=== PATIENT | female | born 2000 | race Two or more races ===

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

== ENCOUNTER 2018-01-11 16:07 | Outpatient (CLI) | payer OTHER ==
[2018-01-11] MEDS ORDERED: morphine LIQ (10 MG/5 ML) CUP PO (19:30)
[2018-01-11] MEDS: LACTATED RINGER'S 1,000 ML IV (20:00)
[2018-01-11] MEDS: morphine 10 MG INJ IM (20:06)
[2018-01-11 20:32] LABS: ADD MAN DIFF? NO
[2018-01-11 20:39] LABS: BASOPHILS % 0.2 % (0.0-2.0); EOSINOPHILS % 0.3 % (0.0-7.0); HEMATOCRIT 32.1 % (37.0-47.0); HEMOGLOBIN 10.3 g/dl (12.0-16.0); LYMPHOCYTES # 1.4 10^3/ul (0.8-2.9); LYMPHOCYTES % 11.6 % (18.0-55.0); MEAN CORPUSCULAR HEMOGLOBIN 27.2 pg (29.0-33.0); MEAN CORPUSCULAR HGB CONC 32.1 g/dl (32.0-37.0); MEAN CORPUSCULAR VOLUME 84.9 fl (72.0-104.0); MEAN PLATELET VOLUME 11.2 fl (7.4-10.4); MONOCYTE # 0.8 10^3/ul (0.3-0.9); MONOCYTES % 6.5 % (0.0-13.0); NEUTROPHILS % 80.8 % (30.0-74.0); PLATELET COUNT 277 10^3/UL (140-415); RED BLOOD COUNT 3.78 10^6/ul (4.20-5.40)
[2018-01-11 20:39] LABS: WHITE BLOOD COUNT 12.3 10^3/ul (4.8-10.8)
[2018-01-11 20:50] LABS: ALANINE AMINOTRANSFERASE 17 IU/L (13-69); ALBUMIN 3.4 g/dl (3.3-4.9); ALBUMIN/GLOBULIN RATIO 1.03; ALKALINE PHOSPHATASE 305 IU/L (42-121); ANION GAP 13 (8-16); ASPARTATE AMINO TRANSFERASE 21 IU/L (15-46); BILIRUBIN,INDIRECT 0.3 mg/dl (0-1.1); BILIRUBIN,TOTAL 0.3 mg/dl (0.2-1.3); BLOOD UREA NITROGEN 10 mg/dl (7-20); CALCIUM 8.8 mg/dl (8.4-10.2); CARBON DIOXIDE 19 mmol/L (21-31); CHLORIDE 106 mmol/L (97-110); CREATININE 0.42 mg/dl (0.44-1.00); GLUCOSE 95 mg/dl (70-220); POTASSIUM 3.8 mmol/L (3.5-5.1); SODIUM 134 mmol/L (135-144); TOTAL PROTEIN 6.7 g/dl (6.1-8.1); URIC ACID 4.1 mg/dl (3.1-7.9)
== END 2018-01-11 23:05 | disposition home or self-care (01) ==
LOC: OBT 16:07 → L-D 16:12 → OBT 23:05
DX: O47.1 False labor at or after 37 completed weeks of gestation (principal); Z3A.38 38 weeks gestation of pregnancy
CPT/HCPCS: 36415; 76818; 80053; 84560; 85025; 96360; 96361; 96372

== ENCOUNTER 2018-01-12 10:53 | Inpatient (IN) | payer OTHER ==
[2018-01-12] MEDS ORDERED: MISOPROSTOL 200 MCG TAB PR (11:30)
[2018-01-12] MEDS ORDERED: LIDOCAINE 1% (MPF) 30 ML INJ INJ (11:30)
[2018-01-12] MEDS ORDERED: BUTORPHANOL 2 MG INJ IV (11:30)
[2018-01-12] MEDS ORDERED: METHYLERGONOVINE 0.2 MG INJ IM (11:30)
[2018-01-12] MEDS ORDERED: OXYTOCIN 30 UNITS/LR 500 ML IV (11:30)
[2018-01-12] MEDS ORDERED: CARBOPROST 250 MCG INJ IM (11:30)
[2018-01-12] MEDS: LACTATED RINGER'S 1,000 ML IV* ×3 (11:49→20:42)
[2018-01-12 11:55] LABS: ADD MAN DIFF? NO
[2018-01-12 12:11] LABS: WHITE BLOOD COUNT 13.6 10^3/ul (4.8-10.8)
[2018-01-12 12:11] LABS: BASOPHILS % 0.1 % (0.0-2.0); EOSINOPHILS % 0.1 % (0.0-7.0); HEMATOCRIT 33.2 % (37.0-47.0); HEMOGLOBIN 11.1 g/dl (12.0-16.0); LYMPHOCYTES # 1.1 10^3/ul (0.8-2.9); LYMPHOCYTES % 7.8 % (18.0-55.0); MEAN CORPUSCULAR HEMOGLOBIN 28.1 pg (29.0-33.0); MEAN CORPUSCULAR HGB CONC 33.4 g/dl (32.0-37.0); MEAN CORPUSCULAR VOLUME 84.1 fl (72.0-104.0); MONOCYTE # 0.7 10^3/ul (0.3-0.9); MONOCYTES % 4.9 % (0.0-13.0); NEUTROPHIL # 11.8 10^3/ul (1.6-7.5); NEUTROPHILS % 86.6 % (30.0-74.0); PLATELET COUNT 314 10^3/UL (140-415); RED BLOOD COUNT 3.95 10^6/ul (4.20-5.40); RED CELL DISTRIBUTION WIDTH 13.9 % (11.5-14.5)
[2018-01-12 12:29] LABS: INR 0.89; PARTIAL THROMBOPLASTIN TIME 27.8 Sec (25.0-35.0); PROTIME 12.1 Sec (11.9-14.9); PT RATIO 0.9
[2018-01-12] MEDS ORDERED: FENTAnyl 2MCG/ML-ROPIV 0.2% 100 ML (12:43)
[2018-01-12] MEDS ORDERED: ONDANSETRON 4 MG INJ IV (13:00)
[2018-01-12] MEDS ORDERED: NALOXONE (0.4 MG/ML) INJ IV (13:00)
[2018-01-12] MEDS ORDERED: DIPHENHYDRAMINE 50 MG INJ IV (13:00)
[2018-01-12 14:04] LABS: AMPHETAMINE/METHAMPHETAMINE Negative (NEGATIVE); BARBITURATES Negative (NEGATIVE)
[2018-01-12 14:13] LABS: BENZODIAZEPINES Negative (NEGATIVE); CANNABINOIDS Negative (NEGATIVE); COCAINE Negative (NEGATIVE)
[2018-01-12 14:56] LABS: OPIATES POSITIVE (NEGATIVE)
[2018-01-12] MEDS: FENTAnyl 2MCG/ML-ROPIV 0.2% 100 ML BAG EPI (20:43)
[2018-01-12 22:11] LABS: RAPID PLASMA REAGIN NONREACTIVE (NR)
[2018-01-13 03:07] LABS: HEPATITIS B SURFACE ANTIGEN NEGATIVE (NEGATIVE)
[2018-01-13] MEDS: LACTATED RINGER'S 1,000 ML IV* ×3 (03:33→20:57)
[2018-01-13] MEDS: FENTAnyl 2MCG/ML-ROPIV 0.2% 100 ML BAG EPI ×2 (03:33→09:12)
[2018-01-13] MEDS: OXYTOCIN 30 UNITS/LR 500 ML IV ×2 (11:04→11:05)
[2018-01-13] MEDS: MINERAL OIL LIGHT 10 ML VIAL TOP (11:05)
[2018-01-13] MEDS: CEFAZOLIN 2 GM/50 ML (PMX) 50 ML IVPB (11:42)
[2018-01-13] MEDS: AZITHROMYCIN 500MG/NS (PMX) 250 ML IVPB (12:02)
[2018-01-13] MEDS ORDERED: BENZOCAINE 20% 56 ML SPRAY TOP (13:00)
[2018-01-13] MEDS ORDERED: WITCH HAZEL/GLYCERIN PAD PR (13:00)
[2018-01-13] MEDS ORDERED: METHYLERGONOVINE 0.2 MG INJ IM (13:00)
[2018-01-13] MEDS ORDERED: OXYTOCIN 30 UNITS/LR 500 ML IV (13:00)
[2018-01-13] MEDS ORDERED: DIBUCAINE 1% 30 GM OINT TOP (13:00)
[2018-01-13] MEDS ORDERED: HYDROCODONE/APAP (5/325) TAB PO ×2 (13:00)
[2018-01-13] MEDS ORDERED: MISOPROSTOL 200 MCG TAB PR (13:00)
[2018-01-13] MEDS ORDERED: CARBOPROST 250 MCG INJ IM (13:00)
[2018-01-13] MEDS ORDERED: ZOLPIDEM 5 MG TAB PO (13:00)
[2018-01-13] MEDS: CEPHALEXIN 500 MG CAP PO ×3 (13:30→23:48)
[2018-01-13] MEDS: IBUPROFEN 600 MG TAB PO ×3 (13:42→23:48)
[2018-01-13] MEDS: SENNA/DOCUSATE NA (8.6MG/50MG) TAB PO ×2 (15:00→21:19)
[2018-01-13] MEDS: MAGNESIUM HYDROXIDE 30ML CUP PO ×2 (15:00→21:19)
[2018-01-14] MEDS: LACTATED RINGER'S 1,000 ML IV* (04:57)
[2018-01-14] MEDS: IBUPROFEN 600 MG TAB PO ×4 (06:07→23:51)
[2018-01-14] MEDS: CEPHALEXIN 500 MG CAP PO ×4 (06:07→23:51)
[2018-01-14 08:21] LABS: ADD MAN DIFF? NO
[2018-01-14 08:26] LABS: BASOPHILS % 0.2 % (0.0-2.0); EOSINOPHILS # 0.2 10^3/ul (0.0-0.5); EOSINOPHILS % 1.8 % (0.0-7.0); HEMATOCRIT 26.1 % (37.0-47.0); HEMOGLOBIN 8.3 g/dl (12.0-16.0); LYMPHOCYTES # 1.8 10^3/ul (0.8-2.9); LYMPHOCYTES % 15.2 % (18.0-55.0); MEAN CORPUSCULAR HEMOGLOBIN 27.7 pg (29.0-33.0); MEAN CORPUSCULAR HGB CONC 31.8 g/dl (32.0-37.0); MEAN PLATELET VOLUME 10.8 fl (7.4-10.4); MONOCYTE # 0.8 10^3/ul (0.3-0.9); MONOCYTES % 6.7 % (0.0-13.0); NEUTROPHILS % 75.5 % (30.0-74.0); PLATELET COUNT 253 10^3/UL (140-415); RED CELL DISTRIBUTION WIDTH 14.5 % (11.5-14.5)
[2018-01-14 08:26] LABS: WHITE BLOOD COUNT 11.9 10^3/ul (4.8-10.8)
[2018-01-14] MEDS: MAGNESIUM HYDROXIDE 30ML CUP PO ×2 (08:36→21:00)
[2018-01-14] MEDS: SENNA/DOCUSATE NA (8.6MG/50MG) TAB PO ×2 (08:36→21:00)
[2018-01-14] MEDS: LANOLIN 7 GM TUBE TOP (23:51)
[2018-01-15] MEDS: CEPHALEXIN 500 MG CAP PO ×2 (05:43→12:00)
[2018-01-15] MEDS: IBUPROFEN 600 MG TAB PO ×2 (05:44→12:00)
[2018-01-15] MEDS: VARICELLA VACCINE LIVE/PF 1,350 UNIT/0.5 ML ML SC* (09:00)
[2018-01-15] MEDS: DIPHTH/TET/ACEL PERTUSS (ADULT) 0.5 ML VIAL IM* (09:00)
[2018-01-15] MEDS: SENNA/DOCUSATE NA (8.6MG/50MG) TAB PO (09:00)
[2018-01-15] MEDS: MEASLES,MUMPS,RUBELLA VACCINE INJ SC* (09:00)
[2018-01-15] MEDS: MAGNESIUM HYDROXIDE 30ML CUP PO (09:00)
== END 2018-01-15 12:25 | disposition home or self-care (01) | DRG 775 ==
LOC: OBT 10:53 → L-D 10:53 → PP1 01-13 12:48 → OBT 11:11 → L-D 11:11
PROC: 10E0XZZ Delivery of Products of Conception, External Approach (ICD-10-PCS; principal; 2018-01-13)
DX: O77.0 Labor and delivery complicated by meconium in amniotic fluid (principal); Z3A.38 38 weeks gestation of pregnancy; Z37.0 Single live birth
CPT/HCPCS: 62319; 80307; 85025; 85610; 85730; 86592; 86850; 86900; 86901; 87340; 88307; 99464